=== PATIENT | female | born 1950 | race Caucasian/White ===

== ENCOUNTER 2024-08-29 09:02 | Outpatient (OUT) | payer SELFPAY ==
--- NOTE | 2024-08-29 | XR_ITS ---
The [address] [address] Patient Name: MIGUEL PATRICIO MRN: [id number] date: 1950 Sex: F Assigned Patient Location: [facility] Current Patient Location: Accession/Order Number: [id number] Exam Date: 08/29/2024 09:03 Report Date: 08/30/2024 07:30 At the request of: FELIX DAVILA Procedure: XR foot RT min 3V PROCEDURE: XR foot RT min 3V COMPARISON: None. HISTORY: RIGHT FOOT PAIN FINDINGS: BONES:No acute fracture or dislocation. Mild degenerative changes with marginal osteophyte formation. Mild enthesopathic spurring of the calcaneus SOFT TISSUES:Negative. No visible soft tissue swelling. EFFUSION:None visible. OTHER: Negative. XR/XR foot RT min 3V IMPRESSION: Mild degenerative changes Electronically authenticated by: CONNIE VIERA Date: 08/30/2024 07:30
== END 2024-08-29 09:03 | disposition home or self-care (01) ==
LOC: RAD 09:02
PROVIDERS: Visit Provider Physician Assistant
DX: M79.671 Pain in right foot (principal); M77.31 Calcaneal spur, right foot
CPT/HCPCS: 73630